=== PATIENT | male | born 1960 | race Caucasian/White ===

== ENCOUNTER → 2019-06-08 18:00 | Outpatient (CLI) | payer OTHER, SELFPAY ==
--- NOTE | ~2019-06-08 | XR_ITS ---
Corrected Report See Bolded Text 06/09/2019 [facility] EXAMINATION: XR pelvis 1-2V DATE: 06/08/2019 18:16 INDICATION: Pelvic pain with tingling and pain extending to the bilateral posterior thighs TECHNIQUE: An anteroposterior view of the pelvis was obtained. COMPARISON: None. FINDINGS: Alignment is normal. No fracture or suspected avascular necrosis. Bilateral hip and sacroiliac joint spaces are relatively preserved. Moderate lumbar spondylosis. There are scattered enthesophytes including along the bilateral iliac crests and spine, the left ischial spine, bilateral vertebral bodies, bilateral ischial tuberosities and left lesser trochanter. Soft tissues are unremarkable. IMPRESSION: 1. Moderate lumbar spondylosis. Reviewed, dictated and finalized at location A. WELL SH[employer]ER MTDD
== END ==
DX: M79.661 Pain in right lower leg (principal); M79.662 Pain in left lower leg; M47.896 Other spondylosis, lumbar region
CPT/HCPCS: 72170; 72190

== ENCOUNTER → 2019-06-29 10:12 | Outpatient (CLI) | payer OTHER, SELFPAY ==
--- NOTE | ~2019-06-29 | MR_ITS ---
EXAMINATION: MR lumbar spine wo/w con EXAM DATE: 06/29/2019 11:13 INDICATION: Bilateral leg pain one half months. Previous surgery 20 years ago. TECHNIQUE: Multi-sequential, multiplanar MR images of the lumbar spine were obtained without contrast . Sagittal T1, T2, T2 fat saturation images. Axial T2 weighted images. Axial T1 weighted sequence. Patient was then injected with 20 mL Multihance intravenous contrast and reimaged. Postcontrast axi al and sagittal T1-weighted fat saturation sequences were obtained. No prior study. FINDINGS: Production Recovery Operator image demonstrates a cystic lesion off the lateral cortex of the right kidney measuri ng 5-6 cm, completely imaged, statistically most likely cyst. L3-L5 laminectomies. 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 There are no areas of abnormal enhancement on the post contrast images. There i s 3 mm retrolisthesis L2 on L3 and L3 on L4, 3 mm anterolisthesis L4 on L5. There is moderate loss of the disc heights from T10-L5. Mild diffuse loss of vertebral body heights. The conus medullaris term inates at the L1 level and has normal signal intensity and morphology. Level by level evaluation: T12-L1: There is a mild to moderate diffuse disc bulge. Facet arthropathy: Moderate . Ligamentum flavum enlargement. Neural foraminal stenosis: Moderate left, mild to moderate right. Central canal stenosis: Moderate, mass effect on conus medullaris without edema. L1-L2: There is a moderate diffuse disc bulge. Facet arthropathy: Moderate . Ligamentum flavum enlargement. Neural foraminal stenosis: Mild to moderate right, mild left. Central canal stenosis: Moderate, minimal CSF space surrounding traversing nerve roots. L2-L3: There is a moderate diffuse disc bulge. Facet arthropathy: Moderate . Ligamentum flavum enlargement. Neural foraminal stenosis: Moderate to severe right, moderate left. Central canal stenosis: Mild to moderate. L3-L4: There is a moderate diffuse disc bulge. Facet arthropathy: Moderate. Neural foraminal stenosis: Severe right, moderate to severe left. Central canal stenosis: Mild to moderate, posterior decompression. L4-L5: There is a moderate diffuse disc bulge. Facet arthropathy: Moderate. Neural foraminal stenosis: Moderate to severe bilateral. Central canal stenosis: Mild to moderate, posterior decompression. L5-S1: There is a mild to moderate diffuse disc bulge. Facet arthropathy: Moderate. Neural foraminal stenosis: Moderate to severe right, moderate left. Central canal stenosis: No stenosis. Posterior decompression. IMPRESSION: 1. Moderate central canal stenosis T12-L1 and L1-L2. 2. Significant multilevel neural foraminal stenosis. Reviewed, dictated and finalized at location B. ING WORKER
[2019-06-29 10:40] LABS: Blood Urea Nitrogen 12 mg/dL (8-26); Estimated Glomerular Filt Rate > 60
== END ==
PROVIDERS: PCP Nurse Practitioner; Visit Provider Nurse Practitioner
DX: M48.061 Spinal stenosis, lumbar region without neurogenic claudication (principal); M79.662 Pain in left lower leg; M79.661 Pain in right lower leg; R20.0 Anesthesia of skin; M99.72 Connective tissue and disc stenosis of intervertebral foramina of thoracic region
CPT/HCPCS: 72158; A9577

== ENCOUNTER → 2019-07-28 17:44 | Outpatient (CLI) | payer OTHER, SELFPAY ==
--- NOTE | ~2019-07-28 | MR_ITS ---
EXAMINATION: MR thoracic spine wo con DATE: 07/28/2019 18:42 INDICATION: Bilateral leg pain and weakness. TECHNIQUE: Magnetic resonance imaging (MRI) of the thoracic spine was performed without intravenous c ontrast. Sagittal localizer T1-weighted FSE of the cervical spine was obtained. Thoracic spine sequen galen included sagittal T2-weighted FSE, sagittal T1-weighted FSE, sagittal T2-weighted FS FSE, and axi al T2-weighted FSE. COMPARISON: Chest 2 views 07/25/2017 FINDINGS: Bone alignment is normal. There are Schmorl's nodes from T3-T4 through T12-L1. There is mil dly decreased disc height at T6-T7, T7-T8, T9-T10, T10-T11, and T11-T12 and moderately decreased disc height at T12-L1. There is mild to moderate facet joint osteoarthritis at most levels. There is mult ilevel mild neural foraminal stenosis bilaterally. On the right, there is moderate neural foraminal s tenosis at T1-T2, T5-T6, and T9-T10 and severe neural foraminal stenosis at T10-T11. On the left, the re is moderate neural foraminal stenosis at T1-T2 and severe neural foraminal stenosis at T10-T11. At T3-T4, there is a left central protrusion with mild central canal stenosis. At T4-T5, there is a balwinder tral extrusion with mild central canal stenosis. At T6-T7, there is a left central extrusion with mil d central canal stenosis. At T9-T10, T10-T11, and T11-T12, the discs are bulging with mild central ca nal stenosis. At T12-L1, the disc is bulging with moderate central canal stenosis and ventral and sabrina paul indentation of the spinal cord. The spinal cord signal intensity is normal. IMPRESSION: 1. Moderate thoracic spondylosis. Reviewed, dictated and finalized at location A.
== END ==
DX: M48.04 Spinal stenosis, thoracic region (principal); M47.894 Other spondylosis, thoracic region
CPT/HCPCS: 72146